=== PATIENT | female | born 2000 | race Caucasian/White ===

== ENCOUNTER 2021-11-10 11:00 | Outpatient (RCR) | payer OTHER, SELFPAY ==
--- NOTE | 2021-10-21 15:58 | HP.PTEVAL ---
Patient's Visit Information ROSALVA CHAPPELL is a 20 year old F referred to Physical Therapy by maurice cheek with a diagnosis of Left closed non displaced fracture of dome of talus. Date of Evaluation: 10/21/21 Physical Therapist: Court Mcintosh DPT - Visit Plan Frequency: 2-3x /Week Duration: 4 Weeks Plan: Aquatic: focus on LE and core strength/stabilization - Subjective In [place] a [place]- thrown off a horse and broke left Talus bone March 2021. She was in a hard cast for 8 weeks then a cast- NWB then weaned her back to WBAT. She was doing great no pain. They had her wean into a tennis shoe. When she is on it for more than an hour she gets pitting edema. She had an MRI which showed ligament damage and PT. She is still wearing the CAM boot most of the time. Around the house she is barefoot or tennis shoes. Feels more stable in tennis shoes. Has been working with a PA in [place] where she is from- she is in [place] at [employer]. 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 Very active before the broken ankle. Patient reports pain is along the lateral aspect of the ankle and into the mortise. Pain radiate to the middle of the peter and down to the lateral aspect of the foot. Worst: 5/10 Agg: Tennis shoes, being up on it Eases: rest, elevation Best: 0/10. Describes the pain as achy and the more she is on it the more sharp it becomes. No N/T in the toes. Has been cleared to run/jump but is unable- painful and doesn't feel she has the strength. This is the first time she has been in PT for her ankle. Sleep: not disturbed. MRI recently-no X-rays recently. She will be back and forth during winter break. PMHx: exercise induced asthma Meds: inhaler. - Objective Posture: FH, RS- can correct but does not maintain. Gait: antalgic- decrease stance on the left LE with poor heel/toe off. Stairs: asc/desc 8 recip with 1 HR- poor control with descent. HR/TR walk: able to Heel walk- unable to toe walk. SLS: 3 sec then LOB. Palpation: tender along lateral aspect of the malleolus, along the 5th met and across the mortise. ROM: DF: neutral, PF: 40 degrees, Ever: 20 degrees Inv: 10 degrees pain with all motions. Flex: HS: moderate, Gastroc: severe, Solues: severe. Strength: Ankle: 4-/5 with pain, Knee: 5/5, Hip: 4-/5, Core: fair minus - Balance/Special Test Scores Lower Extremity Functional Score: 56 - Goals Goal 1:: Patient will be I with HEP and progression Goal Time Frame: 4-6 Weeks Goal 2:: Patient will SLS for 30 sec without loss of balance Goal Time Frame: 4-6 Weeks Goal 3:: Patient will HR/TR full on left LE Goal Time Frame: 4-6 Weeks Goal 4:: Patient will ambulate >300 feet with a normalized gait pattern Goal Time Frame: 4-6 Weeks Goal 5:: Patient will report no pain with ADL's for 1 week Goal Time Frame: 4-6 Weeks - Rehabilitation Potential Physical Therapy Diagnosis: Patient presents with hypomobility- she has decreased pain free ROM, LE and core strength/stabilization, flex and muscular endurance leading to abnormal gait pattern and decreased ability to perform ADL's. Rehabilitation Potential: Good - Anticipated Interventions Patient/Client Instruction: Educate patient on: Benefits of Fitness Program Therapeutic Exercise to Include: Strength training, Endurance training, Balance training, Coordination, Agility training, Body mechanics, Postural training, Flexibilty training, Gait and locomotor training, In an aquatic setting, Dynamic Lumbar Stabilization, Scapular Strength/Stabilization For the Purpose of:: To improve muscle performance and motor function Thank you for the opportunity to evaluate your patient. For Medicare and Medicare HMO plans, please review the plan of care and approve it. It will need to be FAXED BACK to us at [phone] for Medicare purposes. For Medicare only, by signing this I certify the plan of care. Please let me know if there are questions or concerns regarding this plan of care. Physician Signature: Date:
--- NOTE | 2021-12-16 15:06 | HP.PT.NRP ---
ROSALVA CHAPPELL was seen in my office for initial evaluation on 10/21/21. The following Plan of Care was established for this patient: Initial Frequency: 2-3x /Week Initial Duration: 4 Weeks Patient/Client Instruction: Educate patient on: Benefits of Fitness Program Therapeutic Exercise to Include: Strength training, Endurance training, Balance training, Coordination, Agility training, Body mechanics, Postural training, Flexibilty training, Gait and locomotor training, In an aquatic setting, Dynamic Lumbar Stabilization, Scapular Strength/Stabilization For the Purpose of:: To improve muscle performance and motor function This patient was last seen in our office . Pertinent comments regarding their Physical therapy will appear below: Patient has attended PT in over 30 days- appropriate to be d/c from PT- follow up with MD for further evaluation. At this point I will be discontinuing this patient from physical therapy. I would be happy to see this patient again in the future if found appropriate by the physician. Thank you! Court Mcintosh, DPT Balance/Gait/Functional tests - Balance/Special Test Scores Lower Extremity Functional Score: 56
== END 2021-11-10 19:00 | disposition home or self-care (01) ==
LOC: PT 11:00
DX: S92.14 Dome fracture of talus (principal); X58.XXXS Exposure to other specified factors, sequela
CPT/HCPCS: 97110; 97113; 97161